=== PATIENT | male | born 1950 | race Caucasian/White ===

== ENCOUNTER 2025-11-18 17:27 | Emergency (ER) | payer MEDICARE ==
[~2025-11-18] VITALS: Ht 175.3 cm; Wt 81.0 kg
[~2025-11-18 17:27] MED LIST: epiNEPHrine 0.1mg/ml 10ml syringe ONE; sod chloride 0.9% 10ml flush syringe IV ONE; sodium bicarbonate (8.4%) 1 mEq/ml syringe ONE
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
== END 2025-11-18 23:27 ==
LOC: ER 17:28 → EDBD 17:28 → ER 23:27
DX: I46.9 Cardiac arrest, cause unspecified (principal); T75.1XXA Unspecified effects of drowning and nonfatal submersion, initial encounter; Y93.89 Activity, other specified; Y92.89 Other specified places as the place of occurrence of the external cause; Y99.8 Other external cause status
CPT/HCPCS: 31500; 36415; 87040; 99285; J0169; J3490; J7030